=== PATIENT | female | born 1980 | race Two or more races ===

== ENCOUNTER 2016-10-31 18:49 | Emergency (ER) | payer MEDICAID ==
[~2016-10-31] VITALS: Ht 167.6 cm; Wt 108.0 kg
[~2016-10-31 18:49] MED LIST: NITR-39 PO; PREN-96
[2016-10-31 22:15] VITALS: BP 152/84
[2016-10-31] MEDS ORDERED: FLUORESCEIN SOD 1 MG TEST STRIP LEFTEYE ONE (22:15)
[2016-10-31] MEDS ORDERED: TETRACAINE HCL 0.5% OPTH(EYE) SOLN 4ML LEFTEYE ONE (22:15)
== END 2016-10-31 23:00 | disposition home or self-care (01) ==
LOC: EDUNIT# 18:49 → ER 18:49
DX: H10.9 Unspecified conjunctivitis (principal)

== ENCOUNTER 2021-12-29 01:27 | Emergency (ER) | payer MEDICAID ==
[~2021-12-29] VITALS: Ht 167.6 cm; Wt 101.8 kg
[2021-12-29 02:32] LABS: Basophils # (auto) 0 10 ^3/uL (0-0.2); Hematocrit 37.1 % (36.0-46.0)
[2021-12-29 02:40] LABS: Albumin 3.5 g/dL (3.4-5.0); BUN/Creatinine Ratio 16.7; Calcium 8.9 mg/dL (8.5-10.1); Potassium 3.3 mmol/L (3.5-5.1)
[2021-12-29 02:42] LABS: Basophils % (auto) 0.2 % (0.0-2.0); Eosinophils # (auto) 0.2 10 ^3/uL (0-0.8); Eosinophils % (auto) 1.7 % (0.0-7.0); Hemoglobin 12.7 g/dL (12.2-16.2); Lymphocytes # (auto) 2.6 10 ^3/uL (0.4-5.4); Lymphocytes % (auto) 23.8 % (10.0-50.0); Mean Corpuscular Hemoglobin 29.3 pg (28.0-32.0); Mean Corpuscular Hgb Conc. 34.3 g/dL (32.0-36.0); Mean Corpuscular Volume 85.5 fL (80.0-100.0); Monocytes # (auto) 0.6 10 ^3/uL (0-1.3); Monocytes % (auto) 5.2 % (0.0-12.0); Neutrophils # (auto) 7.6 10 ^3/uL (1.6-8.6); Neutrophils % (auto) 69.1 % (37.0-80.0); Nucleated Red Blood Cells % 0.1 %; Red Blood Cells 4.34 10^6/uL (4.0-5.20)
[2021-12-29 02:43] LABS: Bilirubin, Total 0.5 mg/dL (0.2-1.0); Total Protein 6.7 g/dL (6.4-8.2)
[2021-12-29 04:30] VITALS: BP 152/63
== END 2021-12-29 04:43 | disposition home or self-care (01) ==
LOC: ER 01:30
DX: R07.89 Other chest pain (principal); M54.50 Low back pain, unspecified
CPT/HCPCS: 36415; 71045; 80053; 83880; 84484; 85025; 93005

== ENCOUNTER 2023-12-01 17:36 | Emergency (ER) | payer MEDICAID ==
[~2023-12-01] VITALS: Ht 160 cm; Wt 110.8 kg
[2023-12-01] MEDS: ONDANSETRON HCL 4 MG/2 ML VIAL IV ONE (18:00)
[2023-12-01] MEDS: PANTOPRAZOLE 40 MG/10 ML VIAL INJ IV ONE (18:58)
[2023-12-01] MEDS: SODIUM CHLORIDE 0.9% 1,000 ML IV ONE (18:58)
[2023-12-01 19:11] LABS: Urine Bacteria None Seen /hpf (None Seen)
[2023-12-01 19:13] LABS: Basophils # (auto) 0 10 ^3/uL (0-0.2); Basophils % (auto) 0.4 % (0.0-2.0); Eosinophils # (auto) 0.1 10 ^3/uL (0-0.8); Eosinophils % (auto) 0.8 % (0.0-7.0); Hematocrit 39.1 % (36.0-46.0); Hemoglobin 13.6 g/dL (12.2-16.2); Lymphocytes # (auto) 3.5 10 ^3/uL (0.4-5.4); Mean Corpuscular Hgb Conc. 34.7 g/dL (32.0-36.0); Mean Corpuscular Volume 86.6 fL (80.0-100.0); Monocytes # (auto) 0.5 10 ^3/uL (0-1.3); Monocytes % (auto) 4.8 % (0.0-12.0); Neutrophils # (auto) 6.8 10 ^3/uL (1.6-8.6); Platelet Count (auto) 229 10^3/uL (140-450); Red Blood Cells 4.52 10^6/uL (4.0-5.20); Red Cell Distribution Width 13.2 % (11.8-14.3); White Blood Cell 10.9 10^3/uL (4.4-10.8)
[2023-12-01 19:22] LABS: Alanine Aminotransferase 38 U/L (7-40); Albumin 4.3 g/dL (3.2-4.8); Alkaline Phosphatase 120 U/L (46-116); Anion Gap 8 (5-15); Aspartate Aminotransferase 17 U/L (13-40); BUN/Creatinine Ratio 16.9 (10.0-20.0); Bilirubin, Total 0.4 mg/dL (0.2-1.0); Blood Urea Nitrogen 11 mg/dL (9-23); Calcium 9.8 mg/dL (8.7-10.4); Carbon Dioxide 28 mmol/L (20-30); Chloride 101 mmol/L (98-107); Glucose 130 mg/dL (74-106); Sodium 137 mmol/L (136-145); Total Protein 6.7 g/dL (5.7-8.2)
[2023-12-01 19:23] LABS: Urine Blood TRACE /uL (Negative); Urine Clarity Clear (Clear); Urine Color Colorless (Yellow); Urine Protein, UAD TRACE (Negative); Urine Specific Gravity 1.035 (1.001-1.035); Urine Urobilinogen Normal (Negative); Urine WBC 1 /hpf (0 - 5); Urine pH 7.5 (5.0-9.0)
[2023-12-01] MEDS: LIDOCAINE VISCOUS 2% 15ML UD PO ONE (19:30)
[2023-12-01 19:36] LABS: Lipase 36 U/L (12-53)
[2023-12-01 19:37] LABS: Amphetamine Screen, Urine Neg (NEGATIVE); Barbiturate Scree,Urine Neg (NEGATIVE); Benzodiazephine Screen, Urine Neg (NEGATIVE); Cocaine Screen, Urine Neg (NEGATIVE)
[2023-12-01 19:38] LABS: Cannabinoid Screen, Urine Neg (NEGATIVE); Opiate Scree,Urine Neg (NEGATIVE); Phencyclidine Screen, Urine Neg (NEGATIVE)
[2023-12-01] MEDS: SUCRALFATE 1 GM TAB PO ONE (19:46)
[2023-12-01] MEDS: hydrALAZINE HCL 20 MG/ML VL IV ONE (22:49)
[2023-12-01] MEDS: POTASSIUM CHL 20 Meq TABLET PO ONE (22:49)
[2023-12-01] MEDS: LABETALOL HCL 20 MG/4 ML VL IV ONE (22:54)
[2023-12-01 23:00] VITALS: PULSE 62; RESP 20; TEMP 98.3; O2SAT 100
[2023-12-01] MEDS: fentaNYL CITRATE 100 MCG/2 ML VL IV ONE (23:37)
[2023-12-02 00:41] VITALS: BP 172/75; PULSE 65; RESP 17; O2SAT 100
== END 2023-12-02 00:40 | disposition home or self-care (01) ==
LOC: ER 17:36
DX: I16.0 Hypertensive urgency (principal); N83.201 Unspecified ovarian cyst, right side; E87.6 Hypokalemia; R10.13 Epigastric pain; Z98.890 Other specified postprocedural states; Z79.899 Other long term (current) drug therapy
CPT/HCPCS: 36415; 74177; 76705; 80053; 80307; 81001; 83605; 83690; 84484; 85025; 93005; 96361; 96374; 96375; 99285; J0360; J2405; J2470; J3010; J7030; Q9967